=== PATIENT | male | born 1955 | race African-American/Black ===

== ENCOUNTER 2019-11-23 13:17 | Emergency (ER) | payer SELFPAY ==
[~2019-11-23] VITALS: Ht 182.9 cm; Wt 77.1 kg
[~2019-11-23 13:17] MED LIST: IBUPROFEN600 MG ORAL; LISINOPRIL10 MG ORAL; NKM; NORCO 5-325 TA1 EACH ORAL; NORVASC10 MG ORAL
--- NOTE | 2019-11-23 13:26 | NUR ---
ED Nurse Note: Pt walked in for pain L foot, pt got nail stuck in bottom of foot. Slight swelling, no redness. Pt is alert and orientedx4, ambulatory. Pt has been seen by ERMD. No drainage.
[2019-11-23] MEDS ORDERED: Tetanus/Diptheria/Pertussis IM ONE (13:30)
--- NOTE | 2019-11-23 14:19 | Emergency Room Report ---
History of Present Illness General Chief Complaint: Lower Extremity Injury Source: Medical Record Present Illness HPI 64-year-old male presents to the emergency department complaining of 7 out of 10 severity dull constant ache in the left calf with some mild 3 out of 10 severity tenderness to the plantar aspect of the left foot. Patient reports plantar aspect pain x3 days after status post stepping on a nail. Patient reports he remove the nail from his foot in its entirety. He denies suspicion of sustained foreign body. Patient reports that yesterday he began having a constant dull ache in the left calf. He denies strenuous activities otherwise. He denies any other form of trauma or fall. Patient reports pain is in the posterior leg he denies notable swelling. Patient denies bruising, varicose veins, skin color changes or paresthesias. Patient denies history of smoking, recent immobilization or travel history. Patient reports walking exacerbates his pain. He denies bleeding at this time. He denies chest pain, palpitations or shortness of breath. He is not up-to-date with his tetanus vaccination. No other aggravating or relieving factors. Allergies: Coded Allergies: CODEINE (Verified Allergy, Mild, 05/12/13) PASSES OUT PENICILLINS (Verified Allergy, Unknown, 02/21/15) COVID-19 Screening Contact w/high risk pt: No Experienced COVID-19 symptoms?: No COVID-19 Testing performed [employer]: No Patient History Past Medical History: see triage record Past Surgical History: none Pertinent Family History: none Reviewed Nursing Documentation: PMH: Agreed; PSxH: Agreed Nursing Documentation-PM Past Medical History: No History, Except For Hx Hypertension: Yes Review of Systems All Other Systems: negative except mentioned in HPI Physical Exam Vital Signs Date Time Temp Pulse Resp B/P (MAP) Pulse Ox O2 Delivery O2 Flow Rate FiO2 11/23/19 13:22 98.2 70 18 156/94 (114) 95 Room Air Sp02 EP Interpretation: reviewed, normal General Appearance: no apparent distress, alert, GCS 15, non-toxic Head: normocephalic, atraumatic Eyes: bilateral eye normal inspection, bilateral eye PERRL ENT: hearing grossly normal, normal voice Neck: full range of motion Respiratory: chest non-tender, lungs clear, normal breath sounds, speaking full sentences Cardiovascular #1: regular rate, rhythm, no edema, normal capillary refill Musculoskeletal: back normal, normal range of motion, calf tenderness - Left Calf ttp, no vericose veins. Able to planter flex and extend, no obvious swelling or erythema. Mild ttp to the plantar aspect of the left foot at the ball of the foot. small punctate scab noted, no palpable ST fb. No bleeding, scant erythema. no Streaking or warmth., gait/station normal, non-tender, tender - Lft. calf Neurologic: alert, motor strength/tone normal, oriented x3, sensory intact, responsive, speech normal Psychiatric: judgement/insight normal Skin: no rash, normal color Medical Decision Making PA Attestation Dr. Briggs Is my supervising Physician whom patient management has been discussed with. Diagnostic Impression: Primary Impression: Puncture wound Additional Impressions: Pain of left calf Chronic aneurysm of left popliteal vein ER Course 64-year-old male presents to the emergency department complaining of 7 out of 10 severity dull constant ache in the left calf with some mild 3 out of 10 severity tenderness to the plantar aspect of the left foot. Patient reports plantar aspect pain x3 days after status post stepping on a nail. Through his tennis shoes. Patient reports he remove the nail from his foot in its entirety. He denies suspicion of sustained foreign body. Patient reports that yesterday he began having a constant dull ache in the left calf. He denies strenuous activities otherwise. He denies any other form of trauma or fall. Patient reports pain is in the posterior leg he denies notable swelling. Patient denies bruising, varicose veins, skin color changes or paresthesias. Patient denies history of smoking, recent immobilization or travel history. Patient reports walking exacerbates his pain. He denies bleeding at this time. He denies chest pain, palpitations or shortness of breath. He is not up-to-date with his tetanus vaccination. No other aggravating or relieving factors. Ddx considered but are not limited to foreign body, tendon injury, cellulitis, calf muscle strain, possible DVT. Vital signs: are WNL, pt. is afebrile H&PE are most consistent with: Puncture wound of the ball of the left foot, no evidence of foreign body or significant infection at this time. ORDERS: -X-ray Left Foot 3 views: No radiopaque Fb noted - Venous Duplex US of the Left Lower Extremity: R/O DVT. ED INTERVENTIONS: -Tetanus vaccine was administered as pt. vaccination status was unknown. - The wound was copiously irrigated with normal saline, and explored for foreign body for which no FB was found. - Discussed with patient that we will be treating him with oral antibiotics. Will treat w. Levaquin as puncture wound occurred through the rubber sole of a shoe, pseudomonas coverage is indicated. DISCHARGE: At this time pt. is stable for d/c to home. Will provide printed patient care instructions, and any necessary prescriptions. Care plan and follow up instructions have been discussed with the patient prior to discharge. Will treat w. Levaquin as puncture wound occurred through the rubber sole of a shoe, pseudomonas coverage is indicated. Other X-Ray Diagnostic Results Other X-Ray Diagnostic Results : X-Ray ordered: Left Foot # of Views/Limited Vs Complete: 3 View Indication: Pain EP Interpretation: Yes PA Xray: Interpretation reviewed, by supervising MD, and agrees with findings. Interpretation: no dislocation, no soft tissue swelling, no fractures Impression: No acute disease Electronically Signed by: Nicole Bazan PA-C CT/MRI/US Diagnostic Results CT/MRI/US Diagnostic Results : Imaging Test Ordered: Venous Duplex US of the Left Lower Extremity Impression "Impression: negative for acute DVT. Questionable aneurysm of the popliteal vei n" --Per official radiology report- Please see report for specific details. Last Vital Signs Date Time Temp Pulse Resp B/P (MAP) Pulse Ox O2 Delivery O2 Flow Rate FiO2 11/23/19 13:22 98.2 70 18 156/94 (114) 95 Room Air Status: improved Disposition: HOME, SELF-CARE Condition: Stable Scripts Ibuprofen* (MOTRIN*) 600 Mg Tablet 600 MG ORAL THREE TIMES A DAY, #20 TAB Prov: Nicole Bazan 11/23/19 Levofloxacin (LEVOFLOXACIN*) 500 Mg Tablet 500 MG ORAL DAILY for 7 Days, #7 TAB Prov: Nicole Bazan 11/23/19 Referrals: NOT CHOSEN [facility]/,REFERRING (PCP) Patient Instructions: Puncture Wound Additional Instructions: Take medications as directed. Follow up with a Primary Care Provider in 3-5 days, even if your symptoms have resolved. --Please review list of primary care clinics, if you do not already have a primary care provider FOLLOW UP with a PCP regarding the possible Aneurysm of the left popliteal vein, attached is a copy of your official ultrasound report to take with you Return sooner to ED if new symptoms occur, or current symptoms become worse. - Please note that this Emergency Department Report was dictated using [employer] edge burnisher technology software, occasionally this can lead to erroneous entry secondary to interpretation by the dictation equipment. Nicole Bazan Nov 23, 2019 14:19
[2019-11-23 15:25] VITALS: BP 150/87
[2019-11-23] MEDS ORDERED: LEVOFLOXACIN500 MG ORAL (15:34)
[2019-11-23] MEDS ORDERED: IBUPROFEN600 M1 ORAL (15:34)
[2019-11-23 15:44] VITALS: BP 147/85
--- NOTE | 2019-11-23 15:44 | NUR ---
ER DISCHARGE NOTE: Patient is cleared to be discharged per ERMD, pt is aox4, on room air, with stable vital signs. pt was given dc and prescription instructions, pt was able to verbalize understanding, pt id band removed. pt is able to ambulate with steady gait. pt took all belongings.
--- NOTE | 2019-11-25 06:18 | Diagnostic Imaging Report ---
EXAM: XR Left Foot Complete, 3 or More Views CLINICAL HISTORY: PAIN TECHNIQUE: Frontal, lateral and oblique views of the left foot. COMPARISON: None FINDINGS: Bones/joints: Lucency in the left fifth digit distal phalanx may represent artifact versus nondisplaced fracture. Please correlate with point tenderness. No other acute fracture or dislocation identified. Degenerative changes of the left first MTP joint. Osteopenia. Small posterior calcaneal spur. Soft tissues: Unremarkable. No radiopaque foreign body. IMPRESSION: 1. Lucency in the left fifth digit distal phalanx may represent artifact versus nondisplaced fracture. Please correlate with point tenderness. 2. No other acute fracture or dislocation identified.
--- NOTE | 2019-11-25 06:19 | Diagnostic Imaging Report ---
EXAM: US Duplex Left Lower Extremity Veins CLINICAL HISTORY: PAIN TECHNIQUE: Real-time duplex ultrasound scan of the left lower extremity veins integrating B-mode two-dimensional vascular structure, Doppler spectral analysis, color flow Doppler imaging and compression. COMPARISON: None FINDINGS: Deep veins: Question aneurysmal dilatation of the left popliteal vein, measuring approximately 1.5 cm in diameter. No DVT in the visualized common femoral, femoral, proximal deep femoral or popliteal veins. The veins demonstrate normal color flow, are normally compressible, with normal phasic flow and/or augmentation response. Superficial veins: Unremarkable. No thrombus in the visualized great saphenous vein. Soft tissues: No acute findings. No popliteal cyst. IMPRESSION: Question aneurysmal dilatation of the left popliteal vein, measuring approximately 1.5 cm in diameter. No deep venous thrombosis identified in the left lower extremity.
== END 2019-11-23 15:46 | disposition home or self-care (01) ==
LOC: EMR 13:35
DX: S91.332A Puncture wound without foreign body, left foot, initial encounter (principal); W45.0XXA Nail entering through skin, initial encounter; Y92.9 Unspecified place or not applicable; Z88.0 Allergy status to penicillin; Z88.6 Allergy status to analgesic agent; I10 Essential (primary) hypertension; Z23 Encounter for immunization
CPT/HCPCS: 90471; 90715; 93971; 99284